=== PATIENT | female | born 1940 | race African-American/Black ===

== ENCOUNTER 2024-08-31 05:47 | Emergency (ER) | payer MEDICARE, BC ==
[2024-08-31 05:56] VITALS: RESP 18; TEMP 97.8
--- NOTE | 2024-08-31 06:04 | ED ---
General Adult HPI - General Chief complaint: Dizziness Stated complaint: High Bp Time Seen by Provider: 08/31/24 06:01 Source: patient, RN notes reviewed Mode of arrival: ambulatory Limitations: no limitations - History of Present Illness Initial comments: This is an 84-year-old female with a past medical history of hypertension and partial thyroidectomy presents emergency department with her daughter for chief complaint of hypertension and dizziness. Patient states that she has been experiencing dizziness and elevated blood pressure over the last day. she has been experiencing dizziness intermittently over the past few months and her primary care provider is aware of her symptoms. She denies any worsening dizziness or changes in symptoms, states that is is exacerbated with head movement and quick changes in position. Currently, she is denying chest pain, chest pressure, heart palpitations, headaches, blurry or double vision, focal neurological deficits. She denies current use of blood thinners or diuretic use. She has been experiencing bilateral lower extremity mild edema since her return from [place] approximately 2 weeks ago. - Related Data Allergies Allergy/AdvReac Type Severity Reaction Status Date / Time codeine AdvReac Nausea & Verified 08/31/24 05:57 Vomiting & Diarrhea Review of Systems ROS Statement: Those systems with pertinent positive or pertinent negative responses have been documented in the HPI. ROS Other: All systems not noted in ROS Statement are negative. Past Medical History Past Medical History: Hypertension Additional Past Surgical History / Comment(s): Thyroid surgery General Exam Limitations: no limitations General appearance: alert, in no apparent distress Head exam: Present: atraumatic, normocephalic, normal inspection Eye exam: Present: normal appearance, PERRL, EOMI. Absent: scleral icterus, conjunctival injection, periorbital swelling Neck exam: Present: normal inspection. Absent: tenderness, meningismus, lymphadenopathy Respiratory exam: Present: normal lung sounds bilaterally. Absent: respiratory distress, wheezes, rales, rhonchi, stridor Cardiovascular Exam: Present: regular rate, normal rhythm, normal heart sounds. Absent: systolic murmur, diastolic murmur, rubs, gallop, clicks GI/Abdominal exam: Present: soft, normal bowel sounds. Absent: distended, tenderness, guarding, rebound, rigid Extremities exam: Present: normal inspection, full ROM, normal capillary refill, other (bilateral LE 1+ pitting edema). Absent: tenderness, pedal edema, joint swelling, calf tenderness Neurological exam: Present: alert, oriented X3, CN II-XII intact Skin exam: Present: warm, dry, intact, normal color. Absent: rash Course Vital Signs 08/31/24 08/31/24 08/31/24 05:48 07:45 08:50 Temperature 97.8 F Pulse Rate 58 L 53 L 68 Respiratory 18 18 18 Rate Blood Pressure 198/82 178/89 135/78 O2 Sat by Pulse 98 98 99 Oximetry 08/31/24 09:27 Temperature Pulse Rate 78 Respiratory 18 Rate Blood Pressure 163/89 O2 Sat by Pulse 98 Oximetry Medical Decision Making - Medical Decision Making Was pt. sent in by a medical professional or institution (, PA, [employer], urgent care, hospital, or [place] [facility] facility...) When possible be specific @ -No Did you speak to anyone other than the patient for history (EMS, parent, family, police, friend...)? What history was obtained from this source @ -Spoke to the patient's daughter at bedside and states the patient has been experiencing intermittent dizziness over the past few months and her primary care provider is well aware of her symptoms and she has been following outpatient closely with Dr. Carlisle. Did you review nursing and triage notes (agree or disagree)? Why? @ -I reviewed and agree with nursing and triage notes Were old charts reviewed (outside hosp., previous admission, EMS record, old EKG, old radiological studies, urgent care reports/EKG's, [place] [facility] facility records)? Report findings @ -No old charts were reviewed Differential Diagnosis (chest pain, altered mental status, abdominal pain women, abdominal pain men, vaginal bleeding, weakness, fever, dyspnea, syncope, headache, dizziness, GI bleed, back pain, seizure, CVA, palpatations, mental health, musculoskeletal)? @ -Differential Dizziness: Benign paroxysmal positional Vertigo, Meniere's disease, otitis media, acoustic neuroma, vertebrobasilar insufficiency, cerebellar stroke, encephalitis, hypovolemic, arrhythmia, coronary artery syndrome, anemia, this is not meant to be an all-inclusive list EKG interpreted by me (3pts min.). @ -Pleated at 624 interpreted by myself sinus bradycardia with first-degree AV block, ventricular rate 53, IA interval 211, QRS 82, QTc 410. X-rays interpreted by me (1pt min.). @ -None done CT interpreted by me (1pt min.). @ -None done U/S interpreted by me (1pt. min.). @ -None done What testing was considered but not performed or refused? (CT, X-rays, U/S, labs)? Why? @ -CT imaging of the brain was considered but deferred at this time. Patient states that she has been experiencing intermittent dizziness over the past few months and symptoms that she is experiencing today are no different What meds were considered but not given or refused? Why? @ -None Did you discuss the management of the patient with other professionals (professionals i.e. , PA, [employer], lab, RT, psych nurse, social worker masters, fish net stringer, teacher, associate loan officer, case coordinator)? Give summary @ -No Was smoking cessation discussed for >3mins.? @ -No Was critical care preformed (if so, how long)? @ -No Were there social determinants of health that impacted care today? How? (Homelessness, low income, unemployed, alcoholism, drug addiction, transportation, low edu. Level, literacy, decrease access to med. care, residential, rehab)? @ -No Was there de-escalation of care discussed even if they declined (Discuss DNR or withdrawal of care, Hospice)? DNR status @ -No What co-morbidities impacted this encounter? (DM, HTN, Smoking, COPD, CAD, C ancer, CVA, ARF, Chemo, Hep., AIDS, mental health diagnosis, sleep apnea, morbid obesity)? @ -HTN Was patient admitted / discharged? Hospital course, mention meds given and route, prescriptions, significant lab abnormalities, going to OR and other pertinent info. @ -Discharged. 84-year-old female with hypertension and dizziness. On patient's arrival to emergency department she is found to be hypertensive with a blood pressure of BP of 198/82 and heart rate of 58, she is denying chest pain, shortness of breath, difficulty breathing. Physical examination reveals bilateral lower extremity 1+ pitting edema with pulses intact. Neurological examination no acute deficits. Patient will be evaluated via lab studies and EKG. She is in agreement with this plan. BP at ~0700 184/96 HRs in the 50s, patient will be given 10 mg IVP of hydralazine. CMP, CBC, and coagulation profile within normal limits, troponin nonelevated less than 0.012, BNP nonelevated at 345. medication administered at 0753, recheck of BP at 820 156/82 HR in the 60s. patient is stable for discharge at this time with close follow up with her PCP for medication management of hypertension. Undiagnosed new problem with uncertain prognosis? @ -No Drug Therapy requiring intensive monitoring for toxicity (Heparin, Nitro, Insulin, Cardizem)? @ -No Were any procedures done? @ -No Diagnosis/symptom? @ -htn, dizziness Acute, or Chronic, or Acute on Chronic? @ -acute Uncomplicated (without systemic symptoms) or Complicated (systemic symptoms)? @ -uncomplicated Side effects of treatment? @ -No Exacerbation, Progression, or Severe Exacerbation? @ -No Poses a threat to life or bodily function? How? (Chest pain, USA, PR, pneumonia, PE, COPD, DKA, ARF, appy, cholecystitis, CVA, Diverticulitis, Homicidal, Suicidal, threat to staff... and all critical care pts) @ -No - Lab Data Result diagrams: 08/31/24 06:27 08/31/24 06:27 Lab Results 08/31/24 08/31/24 08/31/24 Range/Units 06:27 06:27 06:27 WBC 4.6 (3.8-10.6) k/uL RBC 3.79 L (3.80-5.40) m/uL Hgb 11.3 L (11.4-16.0) gm/dL Hct 35.8 (34.0-46.0) % MCV 94.3 (80.0-100.0) fL MCH 29.8 (25.0-35.0) pg MCHC 31.6 (31.0-37.0) g/dL RDW 14.7 (11.5-15.5) % Plt Count 213 (150-450) k/uL MPV 8.0 Neutrophils % 59 % Lymphocytes % 28 % Monocytes % 5 % Eosinophils % 6 % Basophils % 0 % Neutrophils # 2.7 (1.3-7.7) k/uL Lymphocytes # 1.3 (1.0-4.8) k/uL Monocytes # 0.2 (0-1.0) k/uL Eosinophils # 0.3 (0-0.7) k/uL Basophils # 0.0 (0-0.2) k/uL Hypochromasia Slight PT 10.2 (10.0-12.5) sec INR 0.9 (<1.2) APTT 24.1 (22.0-30.0) sec Sodium 137 (137-145) mmol/L Potassium 4.0 (3.5-5.1) mmol/L Chloride 106 (98-107) mmol/L Carbon Dioxide 26 (22-30) mmol/L Anion Gap 5 mmol/L BUN 21 H (7-17) mg/dL Creatinine 1.17 H (0.52-1.04) mg/dL Est GFR (CKD-EPI)AfAm 49 (>60 ml/min/1.73 sqM) Est GFR (CKD-EPI)NonAf 43 (>60 ml/min/1.73 sqM) Glucose 96 (74-99) mg/dL Calcium 9.7 (8.4-10.2) mg/dL Magnesium 1.9 (1.6-2.3) mg/dL Total Bilirubin 0.5 (0.2-1.3) mg/dL AST 30 (14-36) U/L ALT 28 (4-34) U/L Alkaline Phosphatase 91 (38-126) U/L Troponin I (0.000-0.034) ng/mL NT-Pro-B Natriuret Pep 345 pg/mL Total Protein 6.2 L (6.3-8.2) g/dL Albumin 3.6 (3.5-5.0) g/dL 08/31/24 Range/Units 06:27 WBC (3.8-10.6) k/uL RBC (3.80-5.40) m/uL Hgb (11.4-16.0) gm/dL Hct (34.0-46.0) % MCV (80.0-100.0) fL MCH (25.0-35.0) pg MCHC (31.0-37.0) g/dL RDW (11.5-15.5) % Plt Count (150-450) k/uL MPV Neutrophils % % Lymphocytes % % Monocytes % % Eosinophils % % Basophils % % Neutrophils # (1.3-7.7) k/uL Lymphocytes # (1.0-4.8) k/uL Monocytes # (0-1.0) k/uL Eosinophils # (0-0.7) k/uL Basophils # (0-0.2) k/uL Hypochromasia PT (10.0-12.5) sec INR (<1.2) APTT (22.0-30.0) sec Sodium (137-145) mmol/L Potassium (3.5-5.1) mmol/L Chloride (98-107) mmol/L Carbon Dioxide (22-30) mmol/L Anion Gap mmol/L BUN (7-17) mg/dL Creatinine (0.52-1.04) mg/dL Est GFR (CKD-EPI)AfAm (>60 ml/min/1.73 sqM) Est GFR (CKD-EPI)NonAf (>60 ml/min/1.73 sqM) Glucose (74-99) mg/dL Calcium (8.4-10.2) mg/dL Magnesium (1.6-2.3) mg/dL Total Bilirubin (0.2-1.3) mg/dL AST (14-36) U/L ALT (4-34) U/L Alkaline Phosphatase (38-126) U/L Troponin I <0.012 (0.000-0.034) ng/mL NT-Pro-B Natriuret Pep pg/mL Total Protein (6.3-8.2) g/dL Albumin (3.5-5.0) g/dL Disposition Clinical Impression: Hypertension, Dizziness Disposition: HOME SELF-CARE Condition: Good Instructions (If sedation given, give patient instructions): Hypertension (ED) Additional Instructions: Please return to the Emergency Department if symptoms worsen or any other concerns. Recommend they follow-up with your primary care provider within the next 1 to 3 days for further evaluation of hypertension. Continue take your medications as prescribed. Wear compression stockings to minimize lower extremity edema. Is patient prescribed a controlled substance at d/c from ED?: No Referrals: Luigi Carlisle MD [Primary Care Provider] - 1-2 days Time of Disposition: 08:39
[2024-08-31 06:35] LABS: Basophils % (A) 0 %; Eosinophils # (A) 0.3 k/uL (0-0.7); Eosinophils % (A) 6 %; HCT 35.8 % (34.0-46.0); HGB 11.3 gm/dL (11.4-16.0); Hypochromasia Slight; Lymphocytes # (A) 1.3 k/uL (1.0-4.8); Lymphocytes % (A) 28 %; MCH 29.8 pg (25.0-35.0); MCHC 31.6 g/dL (31.0-37.0); MCV 94.3 fL (80.0-100.0); Monocytes # (A) 0.2 k/uL (0-1.0); Monocytes % (A) 5 %; Neutrophils # (A) 2.7 k/uL (1.3-7.7); Neutrophils % (A) 59 %; Platelet Count 213 k/uL (150-450); RBC 3.79 m/uL (3.80-5.40); RDW 14.7 % (11.5-15.5); WBC 4.6 k/uL (3.8-10.6)
[2024-08-31 06:50] LABS: ALT 28 U/L (4-34); AST 30 U/L (14-36); African American GFR (CKD) 49 (>60 ml/min/1.73 sqM); Albumin 3.6 g/dL (3.5-5.0); Alkaline Phosphatase 91 U/L (38-126); Anion Gap 5 mmol/L; Blood Urea Nitrogen 21 mg/dL (7-17); Calcium 9.7 mg/dL (8.4-10.2); Carbon Dioxide 26 mmol/L (22-30); Chloride 106 mmol/L (98-107); Glucose 96 mg/dL (74-99); Magnesium 1.9 mg/dL (1.6-2.3); Non-African American GFR(CKD) 43 (>60 ml/min/1.73 sqM); Sodium 137 mmol/L (137-145); Total Bilirubin 0.5 mg/dL (0.2-1.3); Total Protein 6.2 g/dL (6.3-8.2)
[2024-08-31 06:55] LABS: INR 0.9 (<1.2); Partial Thromboplastin Time 24.1 sec (22.0-30.0); Prothrombin Time 10.2 sec (10.0-12.5)
[2024-08-31 06:58] LABS: NT-Pro-B-Type Natriuretic Pept 345 pg/mL
[2024-08-31] MEDS: hydrALAZINE HCL 20 MG/ML 1 ML VIAL IVP STA (07:53)
[2024-08-31 09:28] VITALS: BP 163/89; PULSE 78
== END 2024-08-31 09:28 | disposition home or self-care (01) ==
LOC: EC 05:47
CPT/HCPCS: 36415; 80053; 83735; 83880; 84484; 85025; 85610; 85730; 93005; 96374; 99284

== ENCOUNTER 2025-01-22 08:23 | Day surgery (SDC) | payer MEDICARE, BC ==
[2025-01-22 09:21] VITALS: RESP 18; TEMP 97.9
--- NOTE | 2025-01-22 09:46 | US ---
EXAMINATION TYPE: US biopsy thorax or neck DATE OF EXAM: 01/22/2025 9:39 AM COMPARISON: Ultrasound CLINICAL INDICATION:Female, 84 years old with history of C73 MALIGNANT NEOPLASM OF THYROID GLAND; , ATTENDING: Dr. Yoel Goodman PROCEDURE: Informed consent was obtained. The risks and benefits of the procedure were discussed with the patien t. The site was marked. Timeout procedure was performed Ultrasound imaging demonstrates the thyroid gland surgical bed soft tissue lesion. The patient was prepped, draped in the usual sterile fashion, and locally anesthetized with 1% lidoca ine. 3 x 18-gauge core needle biopsies were obtained.. Samples were sent to the pathology department for further analysis. Patient tolerated the procedure without incident and was sent home in stable condition. IMPRESSION: Successful ultrasound guided core biopsy of the left thyroid gland surgical bed soft tissue mass [facility], , 01/22/2025 9:44 AM
[2025-01-22 10:00] VITALS: BP 127/82; PULSE 56
== END 2025-01-22 10:05 | disposition home or self-care (01) ==
LOC: RADPROMAIN 08:23
PROVIDERS: ATTEND Student in an Organized Health Care Education/Training Program
DX: R22.2 Localized swelling, mass and lump, trunk (principal); Z85.850 Personal history of malignant neoplasm of thyroid
CPT/HCPCS: 21550; 88305

== ENCOUNTER → 2025-01-25 | Outpatient (CLI) | payer MEDICARE, BC ==
--- NOTE | 2025-01-25 20:10 | PE ---
EXAMINATION TYPE: PET CT fusion skull to thigh DATE OF EXAM: 01/25/2025 CLINICAL INDICATION:Female, 84 years old with history of C73 thyroid ca; TECHNIQUE: Following the intravenous administration of 11.04 mCi of F-18 FDG, whole body images are performed from the skull base to the Mid thigh. Images are reviewed on the computer in the coronal, axial, and sagittal planes. Reconstructed rotating images are created on independent workstation an d reviewed on the computer. A non-contrast CT is performed in conjunction with the PET scan. Glucos e level 86 mg/dL CT DLP: 333.35 mGycm, Automated exposure control for dose reduction was used. COMPARISON: CT 12/05/2024, PET/CT None, MRI: None FINDINGS: Mediastinal SUV mean is 2.2. Hepatic parenchyma SUV mean is 2.3. SKULL BASE AND NECK: Left thyroid bed uptake Max SUV 6.6 also correlating with patient's history malignancy. Surgical clip s are present suggesting persistent disease at the thyroid gland is surgically absent. CHEST, MEDIASTINUM, AND HILAR REGION: No suspicious radiotracer activity. ABDOMEN AND PELVIS: No suspicious radiotracer activity. MUSCULOSKELETAL STRUCTURES: No suspicious radiotracer activity. OTHER CT: Surgical clips in the left thyroid gland. Colonic diverticulosis. I discussed the arterial vasculature. Surgical clips in the upper abdomen. The gallbladder is not visualized may be surgically absent. There is mildly enlarged. Coronary artery atherosclerosis. IMPRESSION: Posttreatment changes left thyroid gland with persistent uptake in the thyroid bed max SUV 6.6 concer cricket for persistent malignancy. No evidence for metastatic disease. [facility], , 01/25/2025 8:07 PM
== END | disposition home or self-care (01) ==
LOC: RADPETMAIN 14:47
PROVIDERS: ATTEND Student in an Organized Health Care Education/Training Program
DX: C73 Malignant neoplasm of thyroid gland (principal); I25.10 Atherosclerotic heart disease of native coronary artery without angina pectoris; K57.30 Diverticulosis of large intestine without perforation or abscess without bleeding; Z98.890 Other specified postprocedural states
CPT/HCPCS: 78815; A9552

== ENCOUNTER 2025-04-05 07:53 | Emergency (ER) | payer MEDICARE, BC ==
--- NOTE | 2025-04-05 08:35 | ED ---
General Adult HPI - General Chief complaint: Headache Stated complaint: High blood pressure Time Seen by Provider: 04/05/25 08:16 Source: patient, RN notes reviewed, old records reviewed Mode of arrival: wheelchair Limitations: no limitations - History of Present Illness Initial comments: Patient is an 85-year-old female with past medical history remarkable for hypertension, thyroid cancer status post total thyroidectomy in early February, who presents emergency department complaining of headaches, elevated blood pressures, as well as muscle spasms and generalized shaking. Has been dealing with elevated blood pressures on and off since the surgery worse over the last week. Has seen her PCP multiple times for this. Awoke this morning and was complaining of some muscle spasms as well as generalized shaking. Also was complaining of a headache. She took 2 of her hydralazine tablets at home, when she was only prescribed to take 1 hydralazine tablet in the morning with 1 lisinopril tablet. Did not take her lisinopril. States her headache is improving but she is still having the shaking and body tremors. Presents for further evaluation at this time.Patient endorses generalized muscle aches but mostly in the anterior thighs bilaterally. States that she also had some mild leg swelling around the ankles which seems to have subsided.Patient states this is not the worst headache of her life. States it is a bad headache located in the back of her skull. Intermittently does get headaches. - Related Data Home Medications Medication Instructions Recorded Confirmed Baclofen 10 mg PO TID 01/11/25 04/05/25 allopurinoL [Zyloprim] 100 mg PO DAILY 01/11/25 04/05/25 clonazePAM [Clonazepam] 1 mg PO BID PRN 01/11/25 04/05/25 lisinopriL [Zestril] 20 mg PO BID 01/11/25 04/05/25 Cholecalciferol (Vitamin D3) 50 mcg PO DAILY 04/05/25 04/05/25 [Vitamin D3 (50 Mcg = 2000 Iu)] Ferrous Sulfate [Feosol] 325 mg PO DAILY 04/05/25 04/05/25 Levothyroxine Sodium [Levoxyl] 100 mcg PO DAILY 04/05/25 04/05/25 Magnesium Glycinate 200 mg PO DAILY 04/05/25 04/05/25 hydrALAZINE HCL [Apresoline] 25 mg PO TID 04/05/25 04/05/25 Allergies Allergy/AdvReac Type Severity Reaction Status Date / Time codeine AdvReac Nausea & Verified 04/05/25 10:34 Vomiting & Diarrhea hydromorphone [From Dilaudid] AdvReac Nausea & Verified 04/05/25 10:34 Vomiting sulfamethoxazole AdvReac Nausea & Verified 04/05/25 10:34 [From Bactrim] Vomiting trimethoprim [From Bactrim] AdvReac Nausea & Verified 04/05/25 10:34 Vomiting Review of Systems ROS Statement: Those systems with pertinent positive or pertinent negative responses have been documented in the HPI. Review of Systems: CONST: Denies fever EYES: Denies blurry vision ENT: Denies nasal congestion C/V: Denies Chest pain RESP: Denies shortness of breath GI: Denies abdominal pain : Denies dysuria SKIN: Denies rash. MSK: Endorses generalized muscle aches NEURO: Endorses headache ROS Other: All systems not noted in ROS Statement are negative. Past Medical History Past Medical History: Cancer, Hypertension, Thyroid Disorder Additional Past Medical History / Comment(s): thyroid cancer History of Any Multi-Drug Resistant Organisms: None Reported Additional Past Surgical History / Comment(s): Thyroidectomy Past Psychological History: No Psychological Hx Reported Smoking Status: Never smoker Past Alcohol Use History: None Reported Past Drug Use History: None Reported General Exam - General Exam Comments Initial Comments: General: Appears anxious HEAD: Normal with no signs of head trauma. EYES: PERRLA, EOMI, conjunctiva normal, no discharge. Pupils are 2 mm and equal bilaterally. ENT: Hearing grossly intact, normal oropharynx. RESPIRATORY: Clear breath sounds bilaterally. No wheezes, rales, or rhonchi. C/V: Regular rate and rhythm. S1 and S2 auscultated, no edema, peripheral pulses 2+ and intact throughout ABD: Abd is soft, nontender, nondistended EXT: Normal range of motion, no obvious deformity SKIN: No rashes or lesions observed on exposed skin. NEURO: Alert and oriented x 4. No focal sensory or strength deficits. Able to move all 4 extremities at baseline. Patient does have some generalized tremors and muscle spasming in her anterior bilateral thighs. Limitations: no limitations Course Vital Signs 04/05/25 04/05/25 04/05/25 07:56 09:14 10:52 Temperature 97.8 F 98.0 F Pulse Rate 87 66 63 Respiratory 18 15 18 Rate Blood Pressure 165/67 147/89 149/82 O2 Sat by Pulse 100 99 99 Oximetry Medical Decision Making - Medical Decision Making Was pt. sent in by a medical professional or institution (DIONTE Kennedy, [employer]PERATOR, urgent care, hospital, or snf...) When possible be specific @ -No Did you speak to anyone other than the patient for history (EMS, parent, family, police, friend...)? What history was obtained from this source @ -Spoke with patient's daughter who assist with patient's past medical history. Did you review nursing and triage notes (agree or disagree)? Why? @ -I reviewed and agree with nursing and triage notes Were old charts reviewed (outside hosp., previous admission, EMS record, old EKG, old radiological studies, urgent care reports/EKG's, snf records)? Report findings @ -No old charts were reviewed Differential Diagnosis (chest pain, altered mental status, abdominal pain women, abdominal pain men, vaginal bleeding, weakness, fever, dyspnea, syncope, headache, dizziness, GI bleed, back pain, seizure, CVA, palpatations, mental health, musculoskeletal)? @ -Hyperthyroidism, hypothyroidism, electrolyte abnormality, muscle spasms, anxiety, poorly controlled blood pressure. This list is not all inclusive. EKG interpreted by me (3pts min.). @ -As above X-rays interpreted by me (1pt min.). @ -Chest x-ray shows no obvious acute cardiopulmonary process. CT interpreted by me (1pt min.). @ -None done U/S interpreted by me (1pt. min.). @ -None done What testing was considered but not performed or refused? (CT, X-rays, U/S, labs)? Why? @ -None What meds were considered but not given or refused? Why? @ -None Did you discuss the management of the patient with other professionals (professionals i.e. DIONTE Kennedy, [employer]PERATOR, lab, RT, psych nurse, manager social media, marine cargo inspector, teacher, bank secrecy act officer, case management associate)? Give summary @ -No Was smoking cessation discussed for >3mins.? @ -No Was critical care preformed (if so, how long)? @ -No Were there social determinants of health that impacted care today? How? (Homelessness, low income, unemployed, alcoholism, drug addiction, transportation, low edu. Level, literacy, decrease access to med. care, skilled nursing, rehab)? @ -No Was there de-escalation of care discussed even if they declined (Discuss DNR or withdrawal of care, Hospice)? DNR status @ -No What co-morbidities impacted this encounter? (DM, HTN, Smoking, COPD, CAD, Cancer, CVA, ARF, Chemo, Hep., AIDS, mental health diagnosis, sleep apnea, morbid obesity)? @ -Thyroidectomy, hypertension Was patient admitted / discharged? Hospital course, mention meds given and route, prescriptions, significant lab abnormalities, going to OR and other pertinent info. @ -Patient presents for hypertension, mild headache, as well as generalized bodyaches and muscle pains with shaking. Recent thyroidectomy approximately a month ago. We have obtained general labs, EKG, chest x-ray. Patient given IV fluids, as well as a dose of Ativan, Toradol, Zofran. Patient was in agreement this plan. Patient did present mildly hypertensive to 165/67 however she took 2 of her home blood pressure medications. Since she doubled up on her blood pressure meds, we will observe for now and see how her blood pressure responds. Typically before she was having issues with her thyroid, she was 120/80. Has been having issues with intermittent hypertension since. EKG unremarkable. Chest x-ray shows no obvious acute cardiopulmonary process. Patient's blood work is unremarkable. T4 is very mildly elevated at 2.2 with normal being 2.19. On reevaluation, all of patient's symptoms have resolved. Discussed with patient and family proper compliance with antihypertensive medications. Recommend follow-up with her PCP. Return if any worsening symptoms. They were in agreement this plan. I instructed the patient to follow up with their PCP in the next 1-3 days. I explained that the patient should return to the emergency department if they experience any worsening symptoms. Strict return precautions were discussed with the patient. The patient expressed understanding of these instructions. I answered all questions that the patient had. The patient was discharged home in good condition with their prescriptions and follow up information. Undiagnosed new problem with uncertain prognosis? @ -No Drug Therapy requiring intensive monitoring for toxicity (Heparin, Nitro, Insulin, Cardizem)? @ -No Were any procedures done? @ -No Diagnosis/symptom? @ -Muscle spasms, hypertension Acute, or Chronic, or Acute on Chronic? @ -Acute Uncomplicated (without systemic symptoms) or Complicated (systemic symptoms)? @ -Uncomplicated Side effects of treatment? @ -None Exacerbation, Progression, or Severe Exacerbation] @ -No Poses a threat to life or bodily function? @ -Unlikely at this time - Lab Data Result diagrams: 04/05/25 08:35 04/05/25 08:35 Lab Results 04/05/25 04/05/25 04/05/25 Range/Units 08:35 08:35 08:35 WBC 5.57 (4.50-10.00) 10*3/uL RBC 4.20 (4.10-5.20) 10*6/uL Hgb 12.9 (12.0-15.0) g/dL Hct 38.7 (37.2-46.3) % MCV 92.1 (80.0-97.0) fL MCH 30.7 (27.0-32.0) pg MCHC 33.3 (32.0-37.0) g/dL Plt Count 227 (140-440) 10*3/uL MPV 10.4 (9.5-12.2) fL Immature Gran % (Auto) 0.4 % Neutrophils % 65.6 % Lymphocytes % 23.0 % Monocytes % 8.1 % Eosinophils % 2.5 % Basophils % 0.4 % Immature Gran # 0.02 (0.00-0.04) 10*3/uL Neutrophils # 3.66 (1.80-7.70) 10*3/uL Lymphocytes # 1.28 (0.90-5.00) 10*3/uL Monocytes # 0.45 (0.20-1.00) 10*3/uL Eosinophils # 0.14 (0.04-0.35) 10*3/uL Basophils # 0.02 (0.00-0.10) 10*3/uL Sodium 138 (137-145) mmol/L Potassium 4.1 (3.5-5.1) mmol/L Chloride 106 (98-107) mmol/L Carbon Dioxide 21 L (22-30) mmol/L Anion Gap 11 mmol/L BUN 21 H (7-17) mg/dL Creatinine 1.15 H (0.52-1.04) mg/dL Est GFR (CKD-EPI)AfAm 50 (>60 ml/min/1.73 sqM) Est GFR (CKD-EPI)NonAf 44 (>60 ml/min/1.73 sqM) Glucose 138 H (74-99) mg/dL Plasma Lactic Acid Samuel 1.6 (0.7-2.0) mmol/L Calcium 10.2 (8.4-10.2) mg/dL Magnesium 2.2 (1.6-2.3) mg/dL Total Bilirubin 0.5 (0.2-1.3) mg/dL AST 30 (14-36) U/L ALT 24 (4-34) U/L Alkaline Phosphatase 85 (38-126) U/L Creatine Kinase 79 (30-135) U/L Total Protein 6.8 (6.3-8.2) g/dL Albumin 4.0 (3.5-5.0) g/dL TSH 0.037 L (0.465-4.680) mIU/L Free T4 (0.78-2.19) ng/dL 04/05/25 Range/Units 08:35 WBC (4.50-10.00) 10*3/uL RBC (4.10-5.20) 10*6/uL Hgb (12.0-15.0) g/dL Hct (37.2-46.3) % MCV (80.0-97.0) fL MCH (27.0-32.0) pg MCHC (32.0-37.0) g/dL Plt Count (140-440) 10*3/uL MPV (9.5-12.2) fL Immature Gran % (Auto) % Neutrophils % % Lymphocytes % % Monocytes % % Eosinophils % % Basophils % % Immature Gran # (0.00-0.04) 10*3/uL Neutrophils # (1.80-7.70) 10*3/uL Lymphocytes # (0.90-5.00) 10*3/uL Monocytes # (0.20-1.00) 10*3/uL Eosinophils # (0.04-0.35) 10*3/uL Basophils # (0.00-0.10) 10*3/uL Sodium (137-145) mmol/L Potassium (3.5-5.1) mmol/L Chloride (98-107) mmol/L Carbon Dioxide (22-30) mmol/L Anion Gap mmol/L BUN (7-17) mg/dL Creatinine (0.52-1.04) mg/dL Est GFR (CKD-EPI)AfAm (>60 ml/min/1.73 sqM) Est GFR (CKD-EPI)NonAf (>60 ml/min/1.73 sqM) Glucose (74-99) mg/dL Plasma Lactic Acid Samuel (0.7-2.0) mmol/L Calcium (8.4-10.2) mg/dL Magnesium (1.6-2.3) mg/dL Total Bilirubin (0.2-1.3) mg/dL AST (14-36) U/L ALT (4-34) U/L Alkaline Phosphatase (38-126) U/L Creatine Kinase (30-135) U/L Total Protein (6.3-8.2) g/dL Albumin (3.5-5.0) g/dL TSH (0.465-4.680) mIU/L Free T4 2.20 H (0.78-2.19) ng/dL - EKG Data -: EKG Interpreted by Me EKG Comments: 12-lead Electrocardiogram Interpretation Note EKG was reviewed and interpreted by myself. 12-lead ECG performed at 0848 is interpreted by me as revealing normal sinus rhythm at a rate of 71 beats per minute. [place] is normal. RI interval is 169 ms, QRS durations 104 ms, QTc is 437 ms.. There were no ST or T wave abnormalities to suggest myocardial ischemia or injury. R wave progression across the precordium was delayed. By my interpretation this EKG is non-diagnostic for acute ischemia. Disposition Clinical Impression: Hypertension, Muscle spasm Disposition: HOME SELF-CARE Condition: Good Instructions (If sedation given, give patient instructions): Hypertension (ED) Additional Instructions: Continue to take your medications as prescribed. Please return to the ER if any worsening symptoms or concerns. Follow-up with Dr. Lee in the next 1 to 3 days. Is patient prescribed a controlled substance at d/c from ED?: No Referrals: Luigi Carlisle MD [Primary Care Provider] - 1-2 days Time of Disposition: 10:30
[2025-04-05 08:43] LABS: Basophils # (A) 0.02 10*3/uL (0.00-0.10); Basophils % (A) 0.4 %; Eosinophils # (A) 0.14 10*3/uL (0.04-0.35); Eosinophils % (A) 2.5 %; HCT 38.7 % (37.2-46.3); HGB 12.9 g/dL (12.0-15.0); Lymphocytes # (A) 1.28 10*3/uL (0.90-5.00); MCH 30.7 pg (27.0-32.0); MCHC 33.3 g/dL (32.0-37.0); MCV 92.1 fL (80.0-97.0); Mean Platelet Volume 10.4 fL (9.5-12.2); Monocytes # (A) 0.45 10*3/uL (0.20-1.00); Monocytes % (A) 8.1 %; Neutrophils # (A) 3.66 10*3/uL (1.80-7.70); Neutrophils % (A) 65.6 %; Platelet Count 227 10*3/uL (140-440); RDW 13.7 % (11.5-14.5); WBC 5.57 10*3/uL (4.50-10.00)
[2025-04-05] MEDS: KETOROLAC 15 MG/ML 1 ML VIAL IVP STA (08:46)
[2025-04-05] MEDS: ONDANSETRON 4 MG/2 ML VIAL IVP STA (08:46)
[2025-04-05] MEDS: LORazepam 1 MG/0.5 ML VIAL IV STA (08:47)
[2025-04-05] MEDS: SODIUM CHLORIDE 0.9% 1,000 ML IV ONE (08:47)
[2025-04-05 08:56] LABS: ALT 24 U/L (4-34); AST 30 U/L (14-36); African American GFR (CKD) 50 (>60 ml/min/1.73 sqM); Alkaline Phosphatase 85 U/L (38-126); Anion Gap 11 mmol/L; Blood Urea Nitrogen 21 mg/dL (7-17); Calcium 10.2 mg/dL (8.4-10.2); Carbon Dioxide 21 mmol/L (22-30); Chloride 106 mmol/L (98-107); Creatine Kinase 79 U/L (30-135); Glucose 138 mg/dL (74-99); Magnesium 2.2 mg/dL (1.6-2.3); Non-African American GFR(CKD) 44 (>60 ml/min/1.73 sqM); Potassium 4.1 mmol/L (3.5-5.1); Sodium 138 mmol/L (137-145); Total Bilirubin 0.5 mg/dL (0.2-1.3); Total Protein 6.8 g/dL (6.3-8.2)
--- NOTE | 2025-04-05 09:22 | XR ---
EXAMINATION TYPE: XR chest 2V DATE OF EXAM: 04/05/2025 CLINICAL INDICATION: Female, 85 years old with history of abdominal pain, TECHNIQUE: Frontal and lateral views of the chest are obtained. COMPARISON: None FINDINGS: Elevated and eventrated anterior aspect right hemidiaphragm is seen There is no focal air space opacity, pleural effusion, or pneumothorax seen. The cardiac silhouette size is within normal limits. Surgical clips at epigastric region are noted. The osseous structures are intact. IMPRESSION: No acute cardiopulmonary process. [facility], , 04/05/2025 9:20 AM
[2025-04-05 10:53] VITALS: BP 149/82; PULSE 63; RESP 18; TEMP 98
== END 2025-04-05 11:14 | disposition home or self-care (01) ==
LOC: EC 07:53
DX: I10 Essential (primary) hypertension (principal); M62.838 Other muscle spasm; Z90.89 Acquired absence of other organs; Z88.5 Allergy status to narcotic agent; Z88.1 Allergy status to other antibiotic agents; Z88.2 Allergy status to sulfonamides; Z79.899 Other long term (current) drug therapy
CPT/HCPCS: 36415; 93005; 84439; 80053; 82550; 83605; 83735; 84443; 85025; 71046; 99284; 96374; 96375; 96361 ×2; J2060; J1885

== ENCOUNTER → 2025-05-06 | Outpatient (CLI) | payer MEDICARE, BC ==
--- NOTE | 2025-05-06 13:37 | FL ---
EXAMINATION TYPE: FL barium swallow w video DATE OF EXAM: 05/06/2025 MODIFIED SWALLOW / DEGLUTITION STUDY CLINICAL HISTORY: Dysphagia. Recent thyroid cancer with thyroid surgery in February TECHNIQUE: Deglutition study is performed utilizing thin liquid barium, honey and nectar thick liqui d barium, barium thick pudding, and barium coated cracker. 1 minute 15 seconds of fluoro time and 0 images obtained. Total dose area product (DAP) in uGy*m?, mGy*cm? (or similar): n/p COMPARISON: None. FINDINGS: Surgical changes to the thyroid bed are present. The oral and pharyngeal phases show satisf actory initiation and propagation with all modalities tested. Normal mastication is seen with solid modalities tested. There is no evidence of penetration or aspiration with any modality tested. Mild to moderate pharyngeal residue was appreciated. IMPRESSION: No aspiration seen. Please refer to speech therapist notes for further details if necess breanna. [facility], , 05/06/2025 1:35 PM
== END | disposition home or self-care (01) ==
LOC: RADFLMAIN 12:50
PROVIDERS: ATTEND Otolaryngology
DX: C73 Malignant neoplasm of thyroid gland (principal); J38.01 Paralysis of vocal cords and larynx, unilateral; Z85.850 Personal history of malignant neoplasm of thyroid
CPT/HCPCS: 74230

== ENCOUNTER 2025-05-31 15:52 | Emergency (ER) | payer MEDICARE, BC ==
[2025-05-31 16:01] VITALS: TEMP 97.5
[2025-05-31 16:02] LABS: Glucose,Whole Blood 159 mg/dL (70-110)
[2025-05-31 17:01] LABS: Basophils # (A) 0.01 10*3/uL (0.00-0.10); Basophils % (A) 0.1 %; Eosinophils # (A) 0.00 10*3/uL (0.04-0.35); Eosinophils % (A) 0.0 %; HCT 37.2 % (37.2-46.3); HGB 12.4 g/dL (12.0-15.0); Immature Platelet Fraction 11.7 % (1.1-6.1); Lymphocytes # (A) 0.54 10*3/uL (0.90-5.00); Lymphocytes % (A) 5.5 %; MCH 29.7 pg (27.0-32.0); MCHC 33.3 g/dL (32.0-37.0); MCV 89.0 fL (80.0-97.0); Monocytes # (A) 0.29 10*3/uL (0.20-1.00); Monocytes % (A) 2.9 %; Neutrophils # (A) 8.96 10*3/uL (1.80-7.70); Neutrophils % (A) 91.1 %; Platelet Count 142 10*3/uL (140-440); RBC 4.18 10*6/uL (4.10-5.20); RDW 13.2 % (11.5-14.5); WBC 9.84 10*3/uL (4.50-10.00)
--- NOTE | 2025-05-31 17:02 | ED ---
Nausea/Vomiting/Diarrhea HPI - General Chief complaint: Nausea/Vomiting/Diarrhea Stated complaint: NVD Time Seen by Provider: 05/31/25 16:50 Source: patient, RN notes reviewed Mode of arrival: wheelchair - History of Present Illness Initial comments: 85-year-old female presenting for nausea/vomiting/diarrhea since last night. Patient has active thyroid cancer and underwent thyroidectomy in early February 2025. States since the surgery she has been dealing with intermittent hyp ertension. States she takes hydralazine 25 mg 3 times daily and is due for her second dose now. Also endorses headache and muscle cramps. Patient has been taking T3 pills for approximately 1 month and discontinued last week. Patient is getting ready for radiation to start soon. Denies fevers, abdominal pain, chest pain, shortness of breath. - Related Data Home Medications Medication Instructions Recorded Confirmed Baclofen 10 mg PO TID 01/11/25 04/05/25 allopurinoL [Zyloprim] 100 mg PO DAILY 01/11/25 04/05/25 clonazePAM [Clonazepam] 1 mg PO BID PRN 01/11/25 04/05/25 lisinopriL [Zestril] 20 mg PO BID 01/11/25 04/05/25 Cholecalciferol (Vitamin D3) 50 mcg PO DAILY 04/05/25 04/05/25 [Vitamin D3 (50 Mcg = 2000 Iu)] Ferrous Sulfate [Feosol] 325 mg PO DAILY 04/05/25 04/05/25 Levothyroxine Sodium [Levoxyl] 100 mcg PO DAILY 04/05/25 04/05/25 Magnesium Glycinate 200 mg PO DAILY 04/05/25 04/05/25 hydrALAZINE HCL [Apresoline] 25 mg PO TID 04/05/25 04/05/25 Previous Rx's Medication Instructions Recorded Ondansetron Odt [Zofran Odt] 4 mg PO Q8HR PRN #10 tab 05/31/25 Allergies Allergy/AdvReac Type Severity Reaction Status Date / Time codeine AdvReac Nausea & Verified 05/31/25 16:01 Vomiting & Diarrhea hydromorphone [From Dilaudid] AdvReac Nausea & Verified 05/31/25 16:01 Vomiting sulfamethoxazole AdvReac Nausea & Verified 05/31/25 16:01 [From Bactrim] Vomiting trimethoprim [From Bactrim] AdvReac Nausea & Verified 05/31/25 16:01 Vomiting Review of Systems ROS Statement: Those systems with pertinent positive or pertinent negative responses have been documented in the HPI. ROS Other: All systems not noted in ROS Statement are negative. Past Medical History Past Medical History: Cancer, Hypertension, Thyroid Disorder Additional Past Medical History / Comment(s): thyroid cancer History of Any Multi-Drug Resistant Organisms: None Reported Additional Past Surgical History / Comment(s): Thyroidectomy Past Psychological History: No Psychological Hx Reported Smoking Status: Never smoker Past Alcohol Use History: None Reported Past Drug Use History: None Reported General Exam General appearance: alert, in no apparent distress Head exam: Present: atraumatic, normocephalic, normal inspection Respiratory exam: Present: normal lung sounds bilaterally. Absent: respiratory distress, wheezes, rales, rhonchi, stridor Cardiovascular Exam: Present: regular rate, normal rhythm, normal heart sounds. Absent: systolic murmur, diastolic murmur, rubs, gallop, clicks GI/Abdominal exam: Present: soft, normal bowel sounds. Absent: distended, tenderness, guarding, rebound, rigid Extremities exam: Present: normal inspection, full ROM, normal capillary refill. Absent: tenderness, pedal edema, joint swelling, calf tenderness Neurological exam: Present: alert, oriented X3 Psychiatric exam: Present: normal affect, normal mood Skin exam: Present: warm, dry, intact, normal color. Absent: rash Course Vital Signs 05/31/25 05/31/25 15:55 18:07 Temperature 97.5 F L Pulse Rate 75 71 Respiratory 18 18 Rate Blood Pressure 185/94 155/86 O2 Sat by Pulse 98 99 Oximetry Medical Decision Making - Medical Decision Making Was pt. sent in by a medical professional or institution (, PA, CLINICAL NURSE MANAGER, urgent care, hospital, or penitentiary...) When possible be specific @ -No Did you speak to anyone other than the patient for history (EMS, parent, family, police, friend...)? What history was obtained from this source @ -No Did you review nursing and triage notes (agree or disagree)? Why? @ -I reviewed and agree with nursing and triage notes Were old charts reviewed (outside hosp., previous admission, EMS record, old EKG, old radiological studies, urgent care reports/EKG's, penitentiary records)? Report findings @ -No old charts were reviewed Differential Diagnosis (chest pain, altered mental status, abdominal pain women, abdominal pain men, vaginal bleeding, weakness, fever, dyspnea, syncope, headache, dizziness, GI bleed, back pain, seizure, CVA, palpatations, mental health, musculoskeletal)? @ -Differential Women: Appendicitis, Cholecystitis, diverticulosis, ischemic bowel, pancreatitis, hepatitis, UTI, gastroenteritis, AAA, incarcerated hernia, bowel obstruction, constipation, inflammatory bowel, hepatitis, peptic ulcer disease, splenic infarction, perforated viscus, vulvitis, ovarian torsion, PID, kidney stone, placenta abruption, this is not meant to be an all-inclusive list EKG interpreted by me (3pts min.). @ -As above X-rays interpreted by me (1pt min.). @ -None done CT interpreted by me (1pt min.). @ -None done U/S interpreted by me (1pt. min.). @ -None done What testing was considered but not performed or refused? (CT, X-rays, U/S, labs)? Why? @ -None What meds were considered but not given or refused? Why? @ -None Did you discuss the management of the patient with other professionals (professionals i.e. , PA, CLINICAL NURSE MANAGER, lab, RT, psych nurse, manager social work, therapist speech, teacher, chief digital media officer, adult care manager)? Give summary @ -No Was smoking cessation discussed for >3mins.? @ -No Was critical care preformed (if so, how long)? @ -No Were there social determinants of health that impacted care today? How? (Homelessness, low income, unemployed, alcoholism, drug addiction, transportation, low edu. Level, literacy, decrease access to med. care, fpc, rehab)? @ -No Was there de-escalation of care discussed even if they declined (Discuss DNR or withdrawal of care, Hospice)? DNR status @ -No What co-morbidities impacted this encounter? (DM, HTN, Smoking, COPD, CAD, Cancer, CVA, ARF, Chemo, Hep., AIDS, mental health diagnosis, sleep apnea, morbid obesity)? @ -None Was patient admitted / discharged? Hospital course, mention meds given and route, prescriptions, significant lab abnormalities, going to OR and other pertinent info. @ -Discharge. 85-year-old female presenting for nausea/vomiting/diarrhea x 1 day. Denies fevers or abdominal pain. Patient is hypertensive at 185/94 and states she is due for her second dose of hydralazine. Abdomen soft and nonsurgical. Basic lab work was obtained and is remarkable for normal white blood cell count 9, sodium of 129, waistline creatinine however mild BUN bump at 30. Repeat blood pressure 155/86. Upon reevaluation, patient reports improvement of symptoms. Discussed diagnosis of viral gastroenteritis. Patient can be safely discharged home with strict return precautions and close outpatient follow-up. Provided with outpatient course of Zofran to use as needed for nausea/vomiting. Case was discussed with my ED attending Dr. Hilliard Undiagnosed new problem with uncertain prognosis? @ -No Drug Therapy requiring intensive monitoring for toxicity (Heparin, Nitro, Insulin, Cardizem)? @ -No Were any procedures done? @ -No Diagnosis/symptom? @ -Gastroenteritis Acute, or Chronic, or Acute on Chronic? @ -Acute Uncomplicated (without systemic symptoms) or Complicated (systemic symptoms)? @ -Complicated Side effects of treatment? @ -No Exacerbation, Progression, or Severe Exacerbation? @ -No Poses a threat to life or bodily function? How? (Chest pain, USA, NV, pneumonia, PE, COPD, DKA, ARF, appy, cholecystitis, CVA, Diverticulitis, Homicidal, Suicidal, threat to staff... and all critical care pts) @ -Unlikely at this time - Lab Data Result diagrams: 05/31/25 16:55 05/31/25 16:55 Lab Results 05/31/25 05/31/25 05/31/25 Range/Units 16:00 16:55 16:55 WBC 9.84 (4.50-10.00) 10*3/uL RBC 4.18 (4.10-5.20) 10*6/uL Hgb 12.4 (12.0-15.0) g/dL Hct 37.2 (37.2-46.3) % MCV 89.0 (80.0-97.0) fL MCH 29.7 (27.0-32.0) pg MCHC 33.3 (32.0-37.0) g/dL Plt Count 142 (140-440) 10*3/uL MPV 12.1 (9.5-12.2) fL Immature Gran % (Auto) 0.4 % Neutrophils % 91.1 % Lymphocytes % 5.5 % Monocytes % 2.9 % Eosinophils % 0.0 % Basophils % 0.1 % Immature Gran # 0.04 (0.00-0.04) 10*3/uL Neutrophils # 8.96 H (1.80-7.70) 10*3/uL Lymphocytes # 0.54 L (0.90-5.00) 10*3/uL Monocytes # 0.29 (0.20-1.00) 10*3/uL Eosinophils # 0.00 L (0.04-0.35) 10*3/uL Basophils # 0.01 (0.00-0.10) 10*3/uL Manual Slide Review Performed Immature Plt Fraction 11.7 H (1.1-6.1) % Sodium 129 L (137-145) mmol/L Potassium 4.5 (3.5-5.1) mmol/L Chloride 98 (98-107) mmol/L Carbon Dioxide 19 L (22-30) mmol/L Anion Gap 12 mmol/L BUN 30 H (7-17) mg/dL Creatinine 1.18 H (0.52-1.04) mg/dL Est GFR (CKD-EPI)AfAm 49 (>60 ml/min/1.73 sqM) Est GFR (CKD-EPI)NonAf 42 (>60 ml/min/1.73 sqM) Glucose 162 H (74-99) mg/dL POC Glucose (mg/dL) 159 H (70-110) mg/dL POC Glu Personal Assistant ID Kenny Playcie Plasma Lactic Acid Samuel (0.7-2.0) mmol/L Calcium 9.6 (8.4-10.2) mg/dL Total Bilirubin 0.5 (0.2-1.3) mg/dL AST 39 H (14-36) U/L ALT 31 (4-34) U/L Alkaline Phosphatase 100 (38-126) U/L Troponin I (0.000-0.034) ng/mL Total Protein 6.9 (6.3-8.2) g/dL Albumin 4.3 (3.5-5.0) g/dL Lipase 104 (23-300) U/L TSH 3.440 (0.465-4.680) mIU/L Urine Color Urine Appearance (Clear) Urine pH (5.0-8.0) Ur Specific Gordon (1.001-1.035) Urine Protein (Negative) Urine Glucose (UA) (Negative) Urine Ketones (Negative) Urine Blood (Negative) Urine Nitrite (Negative) Urine Bilirubin (Negative) Urine Urobilinogen (<2.0) mg/dL Ur Leukocyte Esterase (Negative) Urine RBC (0-5) /hpf Urine WBC (0-5) /hpf Ur Squamous Epith Cells (0-4) /hpf Urine Bacteria (None) /hpf Urine Mucus (None) /hpf Influenza Type A (PCR) (Not Detectd) Influenza Type B (PCR) (Not Detectd) RSV (PCR) (Not Detectd) SARS-CoV-2 (PCR) (Not Detectd) 05/31/25 05/31/25 05/31/25 Range/Units 16:55 16:55 16:55 WBC (4.50-10.00) 10*3/uL RBC (4.10-5.20) 10*6/uL Hgb (12.0-15.0) g/dL Hct (37.2-46.3) % MCV (80.0-97.0) fL MCH (27.0-32.0) pg MCHC (32.0-37.0) g/dL Plt Count (140-440) 10*3/uL MPV (9.5-12.2) fL Immature Gran % (Auto) % Neutrophils % % Lymphocytes % % Monocytes % % Eosinophils % % Basophils % % Immature Gran # (0.00-0.04) 10*3/uL Neutrophils # (1.80-7.70) 10*3/uL Lymphocytes # (0.90-5.00) 10*3/uL Monocytes # (0.20-1.00) 10*3/uL Eosinophils # (0.04-0.35) 10*3/uL Basophils # (0.00-0.10) 10*3/uL Manual Slide Review Immature Plt Fraction (1.1-6.1) % Sodium (137-145) mmol/L Potassium (3.5-5.1) mmol/L Chloride (98-107) mmol/L Carbon Dioxide (22-30) mmol/L Anion Gap mmol/L BUN (7-17) mg/dL Creatinine (0.52-1.04) mg/dL Est GFR (CKD-EPI)AfAm (>60 ml/min/1.73 sqM) Est GFR (CKD-EPI)NonAf (>60 ml/min/1.73 sqM) Glucose (74-99) mg/dL POC Glucose (mg/dL) (70-110) mg/dL POC Glu Personal Assistant ID Plasma Lactic Acid Samuel 1.5 (0.7-2.0) mmol/L Calcium (8.4-10.2) mg/dL Total Bilirubin (0.2-1.3) mg/dL AST (14-36) U/L ALT (4-34) U/L Alkaline Phosphatase (38-126) U/L Troponin I <0.012 (0.000-0.034) ng/mL Total Protein (6.3-8.2) g/dL Albumin (3.5-5.0) g/dL Lipase (23-300) U/L TSH (0.465-4.680) mIU/L Urine Color Urine Appearance (Clear) Urine pH (5.0-8.0) Ur Specific Gordon (1.001-1.035) Urine Protein (Negative) Urine Glucose (UA) (Negative) Urine Ketones (Negative) Urine Blood (Negative) Urine Nitrite (Negative) Urine Bilirubin (Negative) Urine Urobilinogen (<2.0) mg/dL Ur Leukocyte Esterase (Negative) Urine RBC (0-5) /hpf Urine WBC (0-5) /hpf Ur Squamous Epith Cells (0-4) /hpf Urine Bacteria (None) /hpf Urine Mucus (None) /hpf Influenza Type A (PCR) Not Detected (Not Detectd) Influenza Type B (PCR) Not Detected (Not Detectd) RSV (PCR) Not Detected (Not Detectd) SARS-CoV-2 (PCR) Not Detected (Not Detectd) 05/31/25 Range/Units 19:09 WBC (4.50-10.00) 10*3/uL RBC (4.10-5.20) 10*6/uL Hgb (12.0-15.0) g/dL Hct (37.2-46.3) % MCV (80.0-97.0) fL MCH (27.0-32.0) pg MCHC (32.0-37.0) g/dL Plt Count (140-440) 10*3/uL MPV (9.5-12.2) fL Immature Gran % (Auto) % Neutrophils % % Lymphocytes % % Monocytes % % Eosinophils % % Basophils % % Immature Gran # (0.00-0.04) 10*3/uL Neutrophils # (1.80-7.70) 10*3/uL Lymphocytes # (0.90-5.00) 10*3/uL Monocytes # (0.20-1.00) 10*3/uL Eosinophils # (0.04-0.35) 10*3/uL Basophils # (0.00-0.10) 10*3/uL Manual Slide Review Immature Plt Fraction (1.1-6.1) % Sodium (137-145) mmol/L Potassium (3.5-5.1) mmol/L Chloride (98-107) mmol/L Carbon Dioxide (22-30) mmol/L Anion Gap mmol/L BUN (7-17) mg/dL Creatinine (0.52-1.04) mg/dL Est GFR (CKD-EPI)AfAm (>60 ml/min/1.73 sqM) Est GFR (CKD-EPI)NonAf (>60 ml/min/1.73 sqM) Glucose (74-99) mg/dL POC Glucose (mg/dL) (70-110) mg/dL POC Glu Personal Assistant ID Plasma Lactic Acid Samuel (0.7-2.0) mmol/L Calcium (8.4-10.2) mg/dL Total Bilirubin (0.2-1.3) mg/dL AST (14-36) U/L ALT (4-34) U/L Alkaline Phosphatase (38-126) U/L Troponin I (0.000-0.034) ng/mL Total Protein (6.3-8.2) g/dL Albumin (3.5-5.0) g/dL Lipase (23-300) U/L TSH (0.465-4.680) mIU/L Urine Color Colorless Urine Appearance Clear (Clear) Urine pH 6.0 (5.0-8.0) Ur Specific Gordon 1.009 (1.001-1.035) Urine Protein Negative (Negative) Urine Glucose (UA) Negative (Negative) Urine Ketones Negative (Negative) Urine Blood Negative (Negative) Urine Nitrite Negative (Negative) Urine Bilirubin Negative (Negative) Urine Urobilinogen <2.0 (<2.0) mg/dL Ur Leukocyte Esterase Small H (Negative) Urine RBC <1 (0-5) /hpf Urine WBC <1 (0-5) /hpf Ur Squamous Epith Cells 1 (0-4) /hpf Urine Bacteria Rare H (None) /hpf Urine Mucus Rare H (None) /hpf Influenza Type A (PCR) (Not Detectd) Influenza Type B (PCR) (Not Detectd) RSV (PCR) (Not Detectd) SARS-CoV-2 (PCR) (Not Detectd) - EKG Data -: EKG Interpreted by Me EKG Comments: EKG reveals normal sinus rhythm with no acute ST changes. Ventricular rate 69 bpm, MS interval 195, QRS duration 87, QT/QTc 399/418 Disposition Clinical Impression: Gastroenteritis Disposition: HOME SELF-CARE Condition: Stable Instructions (If sedation given, give patient instructions): Gastroenteritis (ED) Additional Instructions: Please return to the Emergency Department if symptoms worsen or any other concerns. Prescriptions: Ondansetron Odt [Zofran Odt] 4 mg PO Q8HR PRN #10 tab PRN Reason: Nausea Is patient prescribed a controlled substance at d/c from ED?: No Referrals: Luigi Carlisle MD [Primary Care Provider] - 1-2 days Time of Disposition: 20:13
[2025-05-31] MEDS: SODIUM CHLORIDE 0.9% 1,000 ML IV STA (17:05)
[2025-05-31] MEDS: KETOROLAC 15 MG/ML 1 ML VIAL IVP STA (17:07)
[2025-05-31] MEDS: ONDANSETRON 4 MG/2 ML VIAL IVP STA (17:07)
[2025-05-31 17:13] LABS: ALT 31 U/L (4-34); AST 39 U/L (14-36); African American GFR (CKD) 49 (>60 ml/min/1.73 sqM); Albumin 4.3 g/dL (3.5-5.0); Alkaline Phosphatase 100 U/L (38-126); Anion Gap 12 mmol/L; Blood Urea Nitrogen 30 mg/dL (7-17); Calcium 9.6 mg/dL (8.4-10.2); Carbon Dioxide 19 mmol/L (22-30); Chloride 98 mmol/L (98-107); Glucose 162 mg/dL (74-99); Lipase 104 U/L (23-300); Non-African American GFR(CKD) 42 (>60 ml/min/1.73 sqM); Potassium 4.5 mmol/L (3.5-5.1); Sodium 129 mmol/L (137-145); Total Protein 6.9 g/dL (6.3-8.2)
[2025-05-31 17:35] LABS: RSV Not Detected (Not Detectd)
[2025-05-31 19:25] LABS: Bacteria,Urine Rare /hpf; Bilirubin,Urine Negative (Negative); Blood,Urine Negative (Negative); Color,Urine Colorless; Glucose,Urine (UA) Negative (Negative); Ketones,Urine Negative (Negative); Leukocyte Esterase,Urine Small (Negative); Mucus,Urine Rare /hpf; Nitrite,Urine Negative (Negative); PH, Urine 6.0 (5.0-8.0); Protein,Urine Negative (Negative); RBC,Urine <1 /hpf (0-5); Specific Gravity,Urine 1.009 (1.001-1.035); Squamous Epithelial Cell,Urine 1 /hpf (0-4); Urobilinogen,Urine <2.0 mg/dL (<2.0); WBC,Urine <1 /hpf (0-5)
[2025-05-31] MEDS: ONDANSETRON 4 MG ODT STARTER PACK 2 TAB BTL PO STA (20:18)
[2025-05-31 20:26] VITALS: BP 156/91; PULSE 73; RESP 20
== END 2025-05-31 20:27 | disposition home or self-care (01) ==
LOC: EC 15:52
DX: K52.9 Noninfective gastroenteritis and colitis, unspecified (principal); Z88.1 Allergy status to other antibiotic agents; Z88.2 Allergy status to sulfonamides; Z88.5 Allergy status to narcotic agent; Z11.52 Encounter for screening for COVID-19; Z85.850 Personal history of malignant neoplasm of thyroid
CPT/HCPCS: 99284; 96374; 96375; 96361; 36415; 93005; 80053; 84443; 83605; 83690; 84484; 85025; 81001; 87636; J2405; J1885; S0119

== ENCOUNTER → 2025-06-13 | Outpatient (CLI) | payer MEDICARE, BC ==
[2025-06-13 15:19] LABS: Cholesterol 302.00 mg/dL (0.00-200.00); HDL Cholesterol 136.00 mg/dL (40.00-60.00); LDL Cholesterol,Calculated 147.8 mg/dL (0.0-131.0); Triglycerides 90.90 mg/dL (0.00-149.00); VLDL Calculation 18.18 mg/dL (5.00-40.00)
[2025-06-13 15:25] LABS: Calcium 9.3 mg/dL (8.7-10.3); Magnesium 2.3 mg/dL (1.5-2.4)
[2025-06-13 15:28] LABS: T4, Free (Free Thyroxine) <0.11 ng/dL (0.80-1.80)
== END | disposition home or self-care (01) ==
LOC: LABWHC1 09:06
PROVIDERS: ATTEND Internal Medicine
DX: R73.9 Hyperglycemia, unspecified (principal)
CPT/HCPCS: 36415; 80061; 82310; 83036; 83735; 84100; 84432; 84439; 84443; 86800

== ENCOUNTER → 2025-06-19 | Outpatient (CLI) | payer MEDICARE, BC ==
--- NOTE | 2025-06-20 10:39 | NM ---
EXAMINATION TYPE: NM thyroid uptake only single DATE OF EXAM: 06/20/2025 COMPARISON: NONE CLINICAL INDICATION: Female, 85 years old with history of C73 MALIGNANT NEOPLASM OF THYROID GLAND; Following administration of 96.6 uCi I-123 capsule. FINDINGS AND IMPRESSION: No images are acquired. The 24-hour iodine uptake measurements is 4.7%, very slightly increased if th ere is a history of thyroidectomy. [facility], , 06/20/2025 10:37 AM
== END | disposition home or self-care (01) ==
LOC: RADNMMAIN 09:47
PROVIDERS: ATTEND Internal Medicine
DX: C73 Malignant neoplasm of thyroid gland (principal); E89.0 Postprocedural hypothyroidism
CPT/HCPCS: 78012; A9516

== ENCOUNTER → 2025-06-25 | Outpatient (CLI) | payer MEDICARE, BC ==
--- NOTE | 2025-06-25 17:11 | NM ---
EXAMINATION TYPE: NM Thyroid Iodine Therapy Oral DATE OF EXAM: 06/25/2025 2:29 PM COMPARISON: Correlation thyroid uptake 06/19/2025 CLINICAL INDICATION: Female, 85 years old with history of C73 MALIGNANT NEOPLASM OF THYROID GLAND, brandee ihll with history of previous hemithyroidectomy September 2023. Patient with PET/CT in December 2024 with suspicious uptake in the left thyroid fossa. 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 RADIOTRACER: 48.6 mCi I-131. TECHNIQUE: Preparations were made between Dr. Garner's office and the patient and include holding thy roid hormone replacement. TSH was checked and was greater than 90. Patient is on a low iodine diet. Dose was prescribed (written directive) by an Authorized User in conjunction with treatment request b rajesh Garner. Risks, benefits, and potential complications of radioactive I-131 therapy were discussed in detail wi th the patient by myself and the staff nuclear medicine technologist. Verbal and written informed consent wer e obtained. Written instructions were given for radiation safety precautions to be observed for 4 day s outpatient. The patient specific exposure calculations were done by RSO to ensure estimated max dose to any indiv idual exposed to the patient was less than 5 mSv. The patient was specifically advised to avoid close contact with children, women, and other members of public. Dose was verified in dose caliber and patient was given oral I-131 pill under the supervision of me usha collins the staff nuclear medicine technologist. There were no immediate complications. IMPRESSION: Outpatient 48.6 mCi I-131 oral therapy capsule for thyroid cancer. The patient will follo w-up with Dr. Garner and will have posttreatment whole body scans performed on days 2 and 3. [facility], , 06/25/2025 5:09 PM
== END | disposition home or self-care (01) ==
LOC: RADNMMAIN 12:54
PROVIDERS: ATTEND Internal Medicine
DX: C73 Malignant neoplasm of thyroid gland (principal)
CPT/HCPCS: 79005; A9517

== ENCOUNTER → 2025-06-27 | Outpatient (CLI) | payer MEDICARE, BC ==
--- NOTE | 2025-06-28 12:52 | NM ---
EXAMINATION TYPE: NM I-131 Whole Body Imaging DATE OF EXAM: 06/28/2025 COMPARISON: Uptake 06/19/2025 HISTORY: : Female, 85 years old with history of C73 MALIGNANT NEOPLASM OF THYROID GLAND, patient with history of previous hemithyroidectomy September 2023. Patient with PET/CT in December 2024 with suspi cious uptake in the left thyroid fossa. Patient status post completion thyroidectomy in February 2025 fo und to have papillary thyroid carcinoma. TECHNIQUE: Following the oral administration of 48.6 mCi I-131 on 06/26/2025 whole body scan was perf ormed 2 and 3 days after radiotracer administration. Findings: There is physiologic uptake within the salivary glands, nasopharynx, stomach, colon, and bladder. There is focal intense activity in the midline neck corresponding to the thyroidectomy bed. Findings are most suggestive of remnant uptake and ablation. Otherwise, no abnormal tracer activity is seen throughout the body. IMPRESSION: 1. Focal activity along the midline neck most compatible with remnant uptake and ablation. 2. No convincing abnormal activity elsewhere within the neck or remainder of the body to suggest meta static disease. [facility], , 06/28/2025 12:50 PM
== END | disposition home or self-care (01) ==
LOC: RADNMMAIN 06:46
PROVIDERS: ATTEND Internal Medicine
DX: C73 Malignant neoplasm of thyroid gland (principal)
CPT/HCPCS: 78018